=== PATIENT | female | born 1980 | race Caucasian/White ===

== ENCOUNTER 2016-07-04 01:58 | Observation (INO) | payer BC ==
[2016-07-04] MEDS ORDERED: IV RINGERS,LACTATED 1000ML 1,000 ML IV SCH (02:26)
[2016-07-04 02:44] LABS: BILIRUBIN,URINE NEGATIVE (NEG); GLUCOSE,URINE NEGATIVE (NEG); NITRITE,URINE NEGATIVE (NEG); PROTEIN,URINE NEGATIVE (NEG-TRACE); UROBILINOGEN,URINE 0.2 mg/dL (0.2 mg/dL)
[2016-07-04 03:12] LABS: BACTERIA,URINE FEW /HPF (0-FEW); RBC,URINE 0 /HPF (0-2); SQUAMOUS EPITHELIAL CELL,UR MOD /LPF
[2016-07-04] MEDS ORDERED: OXYCODONE/APAP 5/325 TABLET. PO ONE (04:00)
--- NOTE | 2016-07-04 04:05 | RAD ---
OB ULTRASOUND LIMITED HISTORY Pain, clinical need to determine position Sonographic examination the was performed and multiple static images were obtained There is a vertex position. The maternal cervix is not well seen. There is an anterior placenta. The heart beat is confirmed at 130 beats per minute. The amniotic fluid volume appears normal amniotic fluid index measures 12.5 centimeters. Visualization structures is limited at this advanced gestational age. The LMP of 10/30/2015 corresponds with a 35 week 3 day gestational age and estimated date of confinement of 08/05/2016. Estimated size by ultrasound is 37 weeks 1 day estimated date of confinement 07/24/2016. Estimated weight 6 pound 9 ounces +/-16 ounces The measurements are as follows: BPD 9.2 centimeters 37 weeks 4 days Head circumference 33.5 centimeters 30 weeks 2 days Abdominal circumference 32 centimeters 36 weeks 1 day Femur length 7.1 centimeters 36 weeks 3 days Impression One. Vertex position. 2. Single live intrauterine at 35 weeks 3 days gestational age by LMP has size by ultrasound within 1 standard deviation. 3. Normal amniotic fluid volume. Electronically signed by: Stan Padilla MD (Jul 04, 2016 04:04:21)
--- NOTE | 2016-07-04 05:03 | PDOC2 ---
CONSULT Date of Consult Date of Consult DATE: 07/03/16 TIME: 1700 Reason for Consult Reason for Consult: Vaginal bleeding/PMB Identification/Chief Complaint Chief Complaint VB/PMB Source Source: Chart review, Patient History of Present Illness Reason for Visit: Week o Current Medications Current Medications Current Medications Lactated Ringer's (Iv Lactated Ringers) 1,000 ml @ 125 mls/hr Q8H IV ; Start at 02:26 Oxycodone/ Acetaminophen (Percocet 5/325) 1 tab 1X ONCE PO ; Start 07/04/16 at 04:00; Stop 07/04/16 at 04:01; Status DC Allergies Allergies: Coded Allergies: No Known Drug Allergies (Unverified , 07/04/16) Vitals VITALS Vital Signs Date Time Temp Pulse Resp B/P Pulse Ox O2 Delivery O2 Flow Rate FiO2 07/04/16 03:54 18 Room Air Labs Labs Laboratory Tests Test 07/04/16 02:30 Urine Collection Type Unknown Urine Color Yellow Urine Clarity Clear Urine pH 7.0 Urine Specific [place] 1.010 Urine Protein Negativemg/dL (NEG-TRACE) Urine Glucose (UA) Negativemg/dL (NEG) Urine Ketones (Stick) Negativemg/dL (NEG) Urine Blood Negative (NEG) Urine Nitrite Negative (NEG) Urine Bilirubin Negative (NEG) Urine Urobilinogen Dipstick 0.2mg/dL (0.2 mg/dL) Urine Leukocyte Esterase Negative (NEG) Urine RBC 0/HPF (0-2) Urine WBC 1-4/HPF (0-4) Urine Squamous Epithelial Cells Mod/LPF Urine Bacteria Few/HPF (0-FEW) Urine Mucus Slight/LPF Laboratory Tests Test 07/04/16 02:30 Urine Collection Type Unknown Urine Color Yellow Urine Clarity Clear Urine pH 7.0 Urine Specific [place] 1.010 Urine Protein Negativemg/dL (NEG-TRACE) Urine Glucose (UA) Negativemg/dL (NEG) Urine Ketones (Stick) Negativemg/dL (NEG) Urine Blood Negative (NEG) Urine Nitrite Negative (NEG) Urine Bilirubin Negative (NEG) Urine Urobilinogen Dipstick 0.2mg/dL (0.2 mg/dL) Urine Leukocyte Esterase Negative (NEG) Urine RBC 0/HPF (0-2) Urine WBC 1-4/HPF (0-4) Urine Squamous Epithelial Cells Mod/LPF Urine Bacteria Few/HPF (0-FEW) Urine Mucus Slight/LPF MAXX FENG MD Jul 04, 2016 05:03
== END 2016-07-04 04:20 | disposition home or self-care (01) ==
LOC: 3 SO LND 01:58
PROVIDERS: ADMIT Family Medicine; ATTEND Family Medicine
DX: O26.893 Other specified pregnancy related conditions, third trimester (principal); R10.9 Unspecified abdominal pain; M54.5 Low back pain; Z3A.35 35 weeks gestation of pregnancy
CPT/HCPCS: 76815; 81001; G0378; G0379

== ENCOUNTER 2016-07-10 14:51 | Observation (INO) | payer BC ==
[2016-07-10] MEDS ORDERED: IV RINGERS,LACTATED 1000ML 1,000 ML IV SCH (14:56)
[2016-07-10 15:52] LABS: BASO # 0.1 x10^3/uL (0.0-0.2); BASO % 1 % (0-3); EOS % 1 % (0-3); HEMATOCRIT 37.1 % (36.0-47.0); HEMOGLOBIN 12.5 g/dL (12.0-15.5); LYMPH # 2.3 x10^3/uL (1.0-4.8); LYMPH % 18 % (24-48); MEAN CORPUSCULAR HEMOGLOBIN 31 pg (25-35); MEAN CORPUSCULAR HGB CONC 34 g/dL (31-37); MEAN CORPUSCULAR VOLUME 92 fL (79-100); MONO % 8 % (0-9); NEUT % 74 % (31-73); PLATELET COUNT 282 x10^3/uL (140-400); RED BLOOD COUNT 4.02 x10^6/uL (3.50-5.40); WHITE BLOOD COUNT 12.9 x10^3/uL (4.0-11.0)
[2016-07-10 16:07] LABS: CALCIUM 8.3 mg/dL (8.5-10.1); CREATININE 0.7 mg/dL (0.6-1.0); GFR 94.7; POTASSIUM 3.6 mmol/L (3.5-5.1)
[2016-07-10 16:13] LABS: ALBUMIN 2.3 g/dL (3.4-5.0); ALBUMIN/GLOBULIN RATIO 0.6 (1.0-1.7); TOTAL BILIRUBIN 0.2 mg/dL (0.2-1.0); TOTAL PROTEIN 6.3 g/dL (6.4-8.2); URIC ACID 4.5 mg/dL (2.6-6.0)
== END 2016-07-10 17:05 | disposition home or self-care (01) ==
LOC: 3 SO LND 14:51
PROVIDERS: ADMIT Family Medicine; ATTEND Family Medicine
DX: O26.893 Other specified pregnancy related conditions, third trimester (principal); R03.0 Elevated blood-pressure reading, without diagnosis of hypertension; Z3A.36 36 weeks gestation of pregnancy
CPT/HCPCS: 36415; 80053; 84550; 85027; G0378; G0379

== ENCOUNTER → 2016-07-10 | Outpatient (CLI) | payer BC | END | disposition home or self-care (01) | LOC: SPEC 17:05 | PROVIDERS: ATTEND Family Medicine | DX: Z34.90 Encounter for supervision of normal pregnancy, unspecified, unspecified trimester (principal) | CPT/HCPCS: 87070 ==

== ENCOUNTER → 2016-07-18 | Outpatient (CLI) | payer BC | END | disposition home or self-care (01) | LOC: SPEC 16:55 | PROVIDERS: ATTEND Family Medicine | DX: Z34.90 Encounter for supervision of normal pregnancy, unspecified, unspecified trimester (principal) | CPT/HCPCS: 87070 ==